=== PATIENT | female | born 1945 | race Caucasian/White ===

== ENCOUNTER 2018-05-16 01:05 | Emergency (ER) | payer MEDICARE, OTHER, SELFPAY ==
[2018-05-16 01:10] VITALS: BP 129/67; PULSE 61; RESP 18; TEMP 36.7; O2SAT 100; BMI 25.8
--- NOTE | 2018-05-16 01:37 | DI.CT.S_ITS ---
PROCEDURE: CT HEAD/BRAIN WO CON INDICATIONS: fall with head injury, distracting injury, +etoh TECHNIQUE: Noncontrast 4.5 mm thick angled axial sections acquired from the foramen magnum to the vertex, with coronal and sagittal reformats. For radiation dose reduction, the following was used: automated exposure control, adjustment of mA and/or kV according to patient size. COMPARISON: None. FINDINGS: Image quality: Excellent. CSF spaces: Basal cisterns are patent. No extra-axial fluid collections. The ventricles are symmetric in size and shape. Brain: No intracranial bleeds or masses. There is cerebral volume loss for age, with resultant ventricular and sulcal prominence. There are periventricular and deep white matter chronic small vessel ischemic changes. There is intracranial internal carotid artery atherosclerosis. Skull and face: There is right scalp swelling. Calvarium and visualized facial bones appear intact, without suspicious lesions. Sinuses: Visualized sinuses and mastoids are clear. IMPRESSION: No acute intracranial process. Right scalp swelling Dictated by: Emanuel Craven M.D. on 05/16/2018 at 8:21 Approved by: Emanuel Craven M.D. on 05/16/2018 at 8:23
--- NOTE | 2018-05-16 01:37 | DI.RAD.S_ITS ---
PROCEDURE: XR SHOULDER RT MIN 2V INDICATIONS: fall with shoulder pain TECHNIQUE: 2 views of the shoulder were acquired. COMPARISON: None. FINDINGS: Bones: No fractures. There is superior subluxation of the lateral right clavicle relative to the acromion measuring approximately one shaft width. No suspicious bony lesions. Visualized ribs appear intact. The Soft tissues: No suspicious soft tissue calcifications. IMPRESSION: Superior subluxation of the lateral right clavicle relative to the acromion suggesting a.c. separation. Dedicated acromioclavicular radiographs could be performed as clinically warranted. Glenohumeral degenerative joint disease. No fracture. Dictated by: Emanuel Craven M.D. on 05/16/2018 at 8:19 Approved by: Emanuel Craven M.D. on 05/16/2018 at 8:21
--- NOTE | 2018-05-16 02:09 | ED.FALL ---
HPI - Fall General Chief Complaint: Fall Stated Complaint: Fall hit head and right shoulder Time Seen by Provider: 05/16/18 01:11 Source: patient and family Mode of arrival: ambulatory Limitations: no limitations History of Present Illness HPI Narrative: 73-year-old female presents the emergency department for evaluation a mechanical fall in which she hit the right side of her head but denies loss of consciousness, nausea or vomiting. She denies any neurologic symptoms such as blurred vision or trouble with speech. She denies any neck or back pain. She does have right shoulder which is worse with range of motion. She denies numbness, tingling or weakness. Patient was making s'mores and tripped over a stick while trying to re-stoke the fire MD complaint: fall Onset (ago): hour(s) Fall from: standing Fall witnessed: yes, by family Place fall occurred: home Loss of consciousness: none Prolonged down time: no Symptoms prior to fall: none Context: tripped/slipped Location of injury: head Location of injury - extremities: Right: shoulder Associated symptoms (after fall): headache Related Data Allergies Allergy/AdvReac Type Severity Reaction Status Date / Time Penicillins Allergy Verified 05/16/18 01:15 hydromorphone [From Dilaudid] AdvReac Nightmare Verified 05/16/18 01:15 Review of Systems Review of Systems All systems reviewed & are unremarkable except as noted in HPI and below Constitutional Denies chills, Denies fever(s), Reports headache(s), Denies lethargy and Denies weakness Eyes Denies change in vision, Denies eye discharge, Denies irritation and Denies loss of vision ENT Ears, Nose, Mouth, and Throat: Denies change in voice, Reports headache(s), Denies neck pain and Denies sore throat Cardiovascular Denies chest pain, Denies irregular heart rhythm, Denies lightheadedness, Denies palpitations, Denies dyspnea, Denies dyspnea on exertion and Denies orthopnea Respiratory Denies cough, Denies dyspnea, Denies dyspnea on exertion and Denies wheezing Gastrointestinal Gastrointestinal: Denies abdominal pain, Denies change in bowel habits, Denies diarrhea, Denies nausea and Denies vomiting Genitourinary Denies hematuria, Denies flank pain, Denies urinary incontinence and Denies urinary urgency Musculoskeletal Reports limited range of motion and Denies neck pain Integumentary/Breasts Denies pruritus, Denies erythema, Denies rash and Denies wounds Neurologic Denies confusion, Reports headache(s), Denies loss of vision and Denies weakness Psychiatric Denies anxiety, Denies confusion, Denies depression, Denies homicidal ideation and Denies suicidal ideation Endocrine Denies palpitations Hematologic/Lymphatic Denies easy bruising Allergic/Immunologic Denies wheezing Exam Narrative Exam Narrative: 73F in mild distress, R arm in sling. AOx3, GCS 15 Initial Vital Signs Initial Vital Signs: Vital Signs Temperature 98.1 F 05/16/18 01:10 Pulse Rate 61 05/16/18 01:10 Respiratory Rate 18 05/16/18 01:10 Blood Pressure 129/67 H 05/16/18 01:10 Pulse Oximetry 100 05/16/18 01:10 Const General: cooperative and well developed Nutritional Appearance: well nourished Orientation: alert, awake, oriented x3 and not confused HENMT Head: contusion and hematoma Ears: external ears normal and TM's normal bilaterally Nose: external nose normal and No nasal discharge Face and sinus: sinuses nontender, face symmetric, no sinus tenderness and No dry mucous membranes Mouth: oral mucosae normal and moist mucous membranes Teeth and gingiva: dentition normal Throat: tonsils normal and uvula midline Extrem Right upper extremity: shoulder/upper arm Details: abnormal to inspection, tenderness Location: of the A-C joint, axillary nerve sensory function normal and abnormal ROM PFSH Social History Smoking Status: Never smoker Procedures Orthopedic Splinting/Casting Injury #1: Upper Extremity Injury Location: shoulder Upper Extremity Immobilizer: sling/shoulder immobilizer Course Orders Ordered: ED Orders 05/16/18 01:37 CT head/brain wo con Stat XR shoulder RT min 2V Stat Discontinued Medications Hydrocodone Bitart/Acetaminophen (Vicodin Prepack) 1 bottle MISC SEEINSTR ONE Stop: 05/16/18 02:20 Vital Signs - 8 hr 05/16/18 01:10 05/16/18 02:21 Temperature 98.1 F Pulse Rate 61 69 Respiratory Rate 18 Blood Pressure 129/67 H Blood Pressure [Left Arm] 118/70 Pulse Oximetry 100 98 Discharge Plan Departure Patient Disposition: Home, Self-Care Clinical Impression: AC separation, Hematoma of right parietal scalp Instructions: DI for AC Joint Separation Activity Restrictions/Additional Instructions: *You have been diagnosed with [ right AC separation ] *What to do: *Take medications as directed *Follow up with your primary care provider in 2-3 days *Return to ER if you should have any new, worsening or concerning symptoms
[2018-05-16 02:21] VITALS: BP 118/70; PULSE 69; O2SAT 98
[2018-05-16] MEDS: HYDROCODONE/ACET 5/325 PREPACK 1 BOTTLE MISC (02:38)
== END 2018-05-16 02:50 | disposition home or self-care (01) ==
PROVIDERS: Emergency Provider Emergency Medicine
DX: S43.109A Unspecified dislocation of unspecified acromioclavicular joint, initial encounter (principal); W01.0XXA Fall on same level from slipping, tripping and stumbling without subsequent striking against object, initial encounter
CPT/HCPCS: 70450; 73030; 99282; 99284